=== PATIENT | female | born 1980 | race Caucasian/White ===

== ENCOUNTER 2022-01-12 08:39 | Outpatient (CLI) | payer OTHER, SELFPAY ==
--- NOTE | 2022-01-12 08:42 | BI_ITS ---
MAMMOGRAPHY - BILATERAL SCREENING REASON FOR EXAM: Female, 41 years old. Routine annual screening examination. PERTINENT HISTORY: Aunt with breast cancer. TECHNIQUE: Digital bilateral breast sven (3D mammographic acquisition) in the CC and MLO projections. 2-D mediolateral oblique (MLO) and craniocaudad (CC) views of both breasts were obtained. CAD: Full Field Digital Mammography with Computer Added Detection was performed. COMPARISON: Comparison is made with prior outside examination dated 04/08/2020. FINDINGS: Breast Composition: The breasts are extremely dense, which lowers the sensitivity of mammography. There are no dominant masses or suspicious calcifications. Stable benign-appearing bilateral axillary lymph nodes. No other significant abnormalities are identified. There has been no significant change since the prior study. BI/SCRN MAMM (CAD)W/SVEN BILAT IMPRESSION: Stable bilateral screening mammogram. Yearly follow-up mammogram recommended. (A) ASSESSMENT CATEGORY: BIRADS Category 2: Benign. A letter regarding these results will be sent to the patient by the facility within 30 days. Approximately 10% of breast cancers are not detected by mammography. A normal mammogram should not delay biopsy of a clinically suspicious abnormality. [id number] Electronically Signed: Dima Rowland MD at 15:24 EST ,
== END 2022-01-12 23:59 | disposition home or self-care (01) ==
LOC: OPBI 08:40
PROVIDERS: PCP Internal Medicine; Visit Provider Internal Medicine
DX: Z12.31 Encounter for screening mammogram for malignant neoplasm of breast (principal)
CPT/HCPCS: 77063; 77067

== ENCOUNTER → 2022-11-01 | Outpatient (CLI) | payer OTHER, SELFPAY ==
--- NOTE | 2022-11-01 11:50 | US_ITS ---
EXAM: US SOFT TISSUES OF THE NECK CLINICAL INDICATION: nodules TECHNIQUE: Real-time ultrasound scan of the soft tissues of the neck with image documentation. This report was created using [employer] report generation technology. COMPARISON: None. FINDINGS: SOFT TISSUES: Unremarkable. No abscess. No foreign body. LEFT THYROID LOBE: Left thyroid lobe measures 4.5 x 1.7x 1.0 centimeters. There is a solitary 9 mm heterogeneous hypoechoic noncalcified noncalcified wider than tall nodule located posteriorly at the interpolar aspect of the left lobe measuring up to 9 mm. RIGHT THYROID LOBE: Subcentimeter thyroid nodules bilaterally. On the right side there are 2 nonaggressive appearing nodules. The ovoid nodule at the interpolar lower pole aspect anteriorly measures 6 x 4 x 3 mm. The other nodule is compatible with a cyst measuring 4 x 5 x 4 mm; this is benign with no additional follow-up needed. Note that the right thyroid lobe is not seen in its entirely and therefore measurements were not obtained. ISTHMUS: The thyroid isthmus measures 1.7 mm. LYMPH NODES: No adjacent adenopathy. OTHER FINDINGS: No hypervascularity involving the right or left parenchyma. US/Thyroid IMPRESSION: 9 mm TR-4 nodule involving the left thyroid lobe is likely benign. No specific follow-up needed given the less than 1 cm size. Electronically Signed: Stiven Doan MD at 3:35 EST ,
== END | disposition home or self-care (01) ==
LOC: US 11:49
PROVIDERS: PCP Internal Medicine; Referring Provider Internal Medicine; Visit Provider Internal Medicine
DX: E04.2 Nontoxic multinodular goiter (principal)
CPT/HCPCS: 76536

== ENCOUNTER → 2023-04-21 | Outpatient (CLI) | payer OTHER, SELFPAY ==
--- NOTE | 2023-04-21 09:51 | BI_ITS ---
MAMMOGRAPHY - BILATERAL SCREENING REASON FOR EXAM: Female, 42 years old. Routine annual screening examination. PERTINENT HISTORY: Aunt with breast cancer. TECHNIQUE: Digital bilateral breast sven (3D mammographic acquisition) in the CC and MLO projections. 2-D mediolateral oblique (MLO) and craniocaudad (CC) views of both breasts were obtained. CAD: Full Field Digital Mammography with Computer Added Detection was performed. COMPARISON: Comparison is made with prior study dated January 12, 2022. FINDINGS: Breast Composition: The breasts are extremely dense, which lowers the sensitivity of mammography. There are no dominant masses or suspicious calcifications. Stable small benign appearing bilateral axillary lymph nodes. No other significant abnormalities are identified. There has been no significant change since the prior study. BI/SCRN MAMM (CAD)W/SVEN BILAT IMPRESSION: Stable bilateral screening mammogram. Yearly follow-up mammogram recommended. (A) ASSESSMENT CATEGORY: BIRADS Category 2: Benign. A letter regarding these results will be sent to the patient by the facility within 30 days. Approximately 10% of breast cancers are not detected by mammography. A normal mammogram should not delay biopsy of a clinically suspicious abnormality. [id number] Electronically Signed: Dima Rowland MD at 10:53 EDT ,
== END | disposition home or self-care (01) ==
LOC: OPBI 09:50
PROVIDERS: PCP Internal Medicine; Referring Provider Internal Medicine; Visit Provider Internal Medicine
DX: Z12.31 Encounter for screening mammogram for malignant neoplasm of breast (principal)
CPT/HCPCS: 77063; 77067

== ENCOUNTER → 2024-08-09 | Outpatient (CLI) | payer OTHER, SELFPAY ==
--- NOTE | 2024-08-09 08:20 | BI_ITS ---
MAMMOGRAPHY - BILATERAL SCREENING REASON FOR EXAM: Female, 43 years old. Routine annual screening examination. PERTINENT HISTORY: Aunts with breast cancer. TECHNIQUE: Digital bilateral breast sven (3D mammographic acquisition) in the CC and MLO projections. 2-D mediolateral oblique (MLO) and craniocaudad (CC) views of both breasts were obtained. CAD: Full Field Digital Mammography with Computer Added Detection was performed. COMPARISON: Comparison is made with prior study dated April 21, 2023 and January 12, 2022. FINDINGS: Breast Composition: The breasts are extremely dense, which lowers the sensitivity of mammography. There are no dominant masses or suspicious calcifications. Stable benign-appearing bilateral axillary lymph nodes. No other significant abnormalities are identified. There has been no significant change since the prior study. BI/SCRN MAMM (CAD)W/SVEN BILAT IMPRESSION: Stable bilateral screening mammogram. Yearly follow-up mammogram recommended. (A) ASSESSMENT CATEGORY: BIRADS Category 2: Benign. A letter regarding these results will be sent to the patient by the facility within 30 days. Approximately 10% of breast cancers are not detected by mammography. A normal mammogram should not delay biopsy of a clinically suspicious abnormality. [id number] Electronically Signed: Dima Rowland MD at 9:47 EDT ,
--- NOTE | 2024-08-09 10:42 | US_ITS ---
STUDY: ABDOMINAL ULTRASOUND - RIGHT UPPER QUADRANT REASON FOR VISIT: Female, 43 years old elevated liver function tests TECHNIQUE: Grayscale and color Doppler imaging of the right upper quadrant was performed. COMPARISON: None. FINDINGS: Liver: There is increased echogenicity consistent with fatty infiltration. Other etiologies of hepatocellular disease are not excluded. No focal lesion seen. Enlargement to 18.9 cm. Gallbladder: No shadowing gallstones, pericholecystic fluid, or gallbladder wall thickening. 4 mm nonshadowing echogenic focus appears adherent to the gallbladder wall. Common Bile Duct: The common bile duct measures 4 mm. This is within normal limits for patients age. Pancreas: Visualized portion appears unremarkable. Right Kidney: Measures 11.9 cm. No hydronephrosis is seen. OTHER: No free fluid. US/Abdomen Limited IMPRESSION: Hepatomegaly with diffuse fatty infiltration. 4 mm gallbladder polyp. Electronically Signed: Melchor Mckeon MD at 20:35 EDT ,
== END | disposition home or self-care (01) ==
LOC: OPBI 08:20
PROVIDERS: PCP Internal Medicine; Referring Provider Internal Medicine; Visit Provider Internal Medicine
DX: Z12.31 Encounter for screening mammogram for malignant neoplasm of breast (principal)
CPT/HCPCS: 77063; 77067

== ENCOUNTER 2024-08-29 11:00 | Outpatient (RCR) | payer OTHER, SELFPAY ==
--- NOTE | 2024-08-08 13:26 | HP.PTEVAL ---
Patient's Visit Information Visit Information Visit Information: NATHANIEL JUAREZ is a 43 year old F referred to Physical Therapy by Dr. Blanquita Ward MD with a diagnosis of LBP. Date of Evaluation: 08/08/24 Physical Therapist: Lawson Casas, DPT, OCS, CSCS Visit Plan Frequency: 2x /Week Duration: 4-6 Weeks Plan: 2x/week for 3-6 weeks... IE: pt doing PPU 10x 8x/day adn active sitting posture, using towel roll, avoid aggravating activities. Treat with Karen ext progression, PA ext mobs lumbar and thoracic, core mat strength to HEP then general gym based core, LE, postural strength to I program may use TENS, ice if needed for pain. Subjective Subjective: Back started hurting several months ago for no apparent reason. Was hard to turn and bend forward. Pain made her nauseous at the time. Saw chiropractor 4-5 days later but it had eased up by then. Mostly it got better but flares up intermittently. Hurts to sit. Lying on side last night in bed was painful and kept her up a bit. Pain ranges form 0 to unable to bend and turn. Today is a better day. Sleep is interrupted sometimes. Not employed. Basic ADLS all done but not fun on painful days. x rays pelvis and back and was Ok Activities : avoids certain things if it is bad like bending and twisting. In and out of car is painful and noticeable. Hobbies: running into children ages 15/16. No regular exercise since summer, Is a member at [employer]. No leg symptoms but can go into B hips, no numbness or tingling. or weakness. Pain lbp: Pain Intensity (Out of 10): 2 Pain Intensity Range: 0 and 8 Objective Objective: walks into PT I, trasnfers I, somewhat laborious keeping trunk tight to avoid movmement but I. reflexes 2/3 patella and achilles Sensation EL WNL to gross light touch. Strength LE core 3+, hips 3+, knees 4-, ankles 4 LB AROM ext painful and mod limtied, SB no limits and L painful, flexion is full and good, rotations are hesitant and symmetrical without pain today. - SLump and SLR repeated ext centralize pain repeated flexion: : W + instability with pain with resisted UE flexion, hip flexion testing and contralateral rotation in hip. Balance/Special Test Scores Oswestry Low Back Score: 6 Goals Goal 1:: Full Lumbar ROM without pain Goal Time Frame: 4-6 Weeks Goal 2:: I apporpriate HEP to limit future problem including core astrength and posture and general ex in gym Goal Time Frame: 4-6 Weeks Goal 3:: Oswestry 3 or better. Goal Time Frame: 4-6 Weeks Goal 4:: patient feel 90% better overall and pain 1/10 at worst Goal Time Frame: 4-6 Weeks Rehabilitation Potential Physical Therapy Diagnosis: pain and core weakness likely derangement related effecting comfortable function Rehabilitation Potential: Good Anticipated Interventions Patient/Client Instruction: Educate patient on: Condition and Plan of Care For the Purpose of:: To decrease pain, To increase ROM, To improve nutrient delivery to tissue, To improve muscle performance and motor function, To increase tolerance to activity/condition/position and To improve gait and locomotor functions Therapeutic Exercise to Include: Strength training, Postural training, Active ROM, Dynamic Lumbar Stabilization and Karen Exercises For the Purpose of:: To decrease pain, To increase ROM, To improve nutrient delivery to tissue, To improve muscle performance and motor function, To increase tolerance to activity/condition/position and To improve gait and locomotor functions Manual Therapy Techniques to Include: Mobilization, Passive ROM and Soft tissue mobilization For the Purpose of:: To decrease pain, To increase ROM and To improve nutrient delivery to tissue TENS: Yes Cryotherapy (ice pack, ice massage): Yes For the Purpose of:: To decrease pain, To decrease swelling/inflammation and To increase ROM Text: Thank you for the opportunity to evaluate your patient. For Medicare and Medicare HMO plans, please review the plan of care and approve it. It will need to be FAXED BACK to us at [phone] for Medicare purposes. For Medicare only, by signing this I certify the plan of care. Please let me know if there are questions or concerns regarding this plan of care. Physician Signature: Date:
--- NOTE | 2024-08-29 11:58 | HP.PTDCSUM ---
Discharge Summary D/C summary: It has been my pleasure to treat NATHANIEL JUAREZ referred by Dr. Blanquita Ward MD, with the diagnosis of LBP for a total of 7 visit(s). Discharge Date: 08/29/24 Please see the following information for a summary of their discharge status. Subjective Subjective: Getting better. Doing significantly better. Feels LB with exercises but does not linger. Bending and moving like a normal human being. Activities: Has avoided volume of fall clean up. Sleeping is Ok. Pain lbp: Pain Intensity (Out of 10): 1 Overall Improvement % Improvement: 80 Objective Objective/Function: Full Lumbar AROM, still some very slight discomfort end range ext and PA mobs but much better. No pain with flexion or SB, no hesitancy. walking well. Goals Goal 1:: Full Lumbar ROM without pain Goal Progress: Goal Met Goal 2:: I apporpriate HEP to limit future problem including core astrength and posture and general ex in gym Goal Progress: Goal Met Goal 3:: Oswestry 3 or better. Goal Progress: Progressing Goal 4:: patient feel 90% better overall and pain 1/10 at worst Goal Progress: 80% Plan Plan: d/c to HEP and gym ex D/C Information Discharge Comments: Will continue in gym and via HEP d/c sentence: If there are questions or concerns regarding this patient's physical therapy, please feel free to call me at [phone]. Thank you for the referral of this patient. Sincerely, Lawson Casas, DPT, OCS, CSCS Balance/Gait/Functional tests Balance/Special Test Scores Oswestry Low Back Score: 5 Improvement % Improvement: 80
== END 2024-08-29 19:00 | disposition home or self-care (01) ==
LOC: PT 11:00
PROVIDERS: PCP Internal Medicine; Referring Provider Internal Medicine; Visit Provider Internal Medicine
DX: M54.50 Low back pain, unspecified (principal)
CPT/HCPCS: 97110; 97161

== ENCOUNTER → 2025-06-03 | Outpatient (CLI) | payer OTHER, SELFPAY ==
--- NOTE | 2025-06-03 09:56 | US_ITS ---
PROCEDURE: ABDOMEN LIMITED 06/03/2025 REASON FOR EXAM: ULTRASOUND OF GALLBLADDER History of gallbladder polyps. COMPARISON: Prior study dated August 09, 2024. FINDINGS: Liver: Diffusely echogenic suggesting fatty infiltration. Hepatomegaly. The liver measures 19.9 cm. Gallbladder: There are 2 gallbladder polyps adherent to the gallbladder wall. The larger polyp measures 8 mm x 6 mm x 5 mm. No evidence of gallstones. The gallbladder wall measures 3 mm. Common bile duct: Normal measuring 3 mm . Pancreas: Visualized portions are sonographically unremarkable. Other: Visualized portions of the right kidney are unremarkable. No right upper quadrant ascites. US/Abdomen Limited IMPRESSION: Hepatomegaly and fatty infiltration of the liver. Stable small gallbladder polyps. Reading Location: [place] [id number]
--- NOTE | 2025-06-03 09:56 | US_ITS ---
PROCEDURE: ABDOMEN LIMITED 06/03/2025 REASON FOR EXAM: ULTRASOUND OF GALLBLADDER History of gallbladder polyps. COMPARISON: Prior study dated August 09, 2024. FINDINGS: Liver: Diffusely echogenic suggesting fatty infiltration. Hepatomegaly. The liver measures 19.9 cm. Gallbladder: There are 2 gallbladder polyps adherent to the gallbladder wall. The larger polyp measures 8 mm x 6 mm x 5 mm. No evidence of gallstones. The gallbladder wall measures 3 mm. Common bile duct: Normal measuring 3 mm . Pancreas: Visualized portions are sonographically unremarkable. Other: Visualized portions of the right kidney are unremarkable. No right upper quadrant ascites. US/Abdomen Limited IMPRESSION: Hepatomegaly and fatty infiltration of the liver. Stable small gallbladder polyps. Reading Location: [place] [id number]
== END | disposition home or self-care (01) ==
LOC: US 09:55
PROVIDERS: PCP Internal Medicine; Referring Provider Internal Medicine; Visit Provider Internal Medicine
DX: K82.4 Cholesterolosis of gallbladder (principal)
CPT/HCPCS: 76705

== ENCOUNTER → 2025-08-15 | Outpatient (CLI) | payer OTHER, SELFPAY ==
--- NOTE | 2025-08-15 10:45 | BI_ITS ---
EXAM: SCRN MAMM (CAD)W/SVEN BILAT DATE: 08/15/2025 CLINICAL HISTORY: F, Age 45 y/o , SCREENING TECHNIQUE: Procedure Code: [id number] Modality: MG Procedure: SCRN MAMM (CAD)W/SVEN BILAT COMPARISON: Prior exam(s) were compared FINDINGS: TISSUE DENSITY: The breasts are heterogeneously dense, which may obscure small masses. Bilateral Breast Mammographic Findings: No suspicious masses, calcifications or other abnormalities are identified. BI/SCRN MAMM (CAD)W/SVEN BILAT IMPRESSION: No mammographic evidence of malignancy in either breast OVERALL FINAL ASSESSMENT BI-RADS 1: NEGATIVE. RECOMMENDATION: Routine annual follow-up in 1 Year Additional Recommendation none A letter with findings and recommendations will be mailed to the patient. Reading Location: [id number]
== END | disposition home or self-care (01) ==
LOC: OPBI 10:41
PROVIDERS: PCP Internal Medicine; Referring Provider Internal Medicine; Visit Provider Internal Medicine
DX: Z12.31 Encounter for screening mammogram for malignant neoplasm of breast (principal)
CPT/HCPCS: 77063; 77067